=== PATIENT | female | born 1980 | race Caucasian/White ===

== ENCOUNTER 2025-04-09 15:24 | Emergency (ER) | payer BC ==
[~2025-04-09] VITALS: Ht 177.8 cm; Wt 115.7 kg
[2025-04-09 15:51] VITALS: PULSE 80; RESP 22; TEMP 98.6
[2025-04-09 15:56] LABS: BASOPHILS % 0.6 % (0.0-1.0); EOSINOPHILS % 2.8 % (0.0-6.0); LYMPHOCYTES % 22.7 % (18.0-39.1); MONOCYTES % 7.6 % (4.4-11.3); NEUTROPHILS % 66.2 % (38.7-80.0); RED CELL DISTRIBUTION WIDTH 13.6 % (11.7-14.4)
[2025-04-09 16:17] LABS: EST GLOMERULAR FILTRATION RATE 66 ML/MIN (>=60)
[2025-04-09] MEDS: KETOROLAC TROMETHAMINE 30 MG/ML VIAL IV STA (16:26)
[2025-04-09] MEDS ORDERED: Morphine 4mg INJECTION 4 MG/ML INJ IV ONE (16:45)
[2025-04-09] MEDS: DEXAMETHASONE SOD PHOS 10 MG/1 ML VIAL IV ONE (17:08)
[2025-04-09] MEDS: LORAZEPAM INJ 2 MG/ML VIAL IV ONE (17:09)
[2025-04-09 17:58] VITALS: BP 113/69; PULSE 66; RESP 18; O2SAT 100
== END 2025-04-09 18:11 | disposition home or self-care (01) ==
LOC: ER 15:31
DX: R07.89 Other chest pain (principal); M54.12 Radiculopathy, cervical region; R94.31 Abnormal electrocardiogram [ECG] [EKG]
CPT/HCPCS: 36415; 71045; 80053; 83690; 84484; 84702; 85025; 93005; 99284; J1100; J1885; J2060